=== PATIENT | male | born 1955 | race Caucasian/White ===

== ENCOUNTER 2023-04-03 10:39 | Emergency (ER) | payer MEDICARE ==
[~2023-04-03] VITALS: Ht 175.3 cm; Wt 113.4 kg
[~2023-04-03 10:39] MED LIST: ASPIRIN EC81 MG PO; CRESTOR10 MG PO; LISINOPRIL10 MG PO; METFORMIN HCL500 MG PO; MULTI-VITAMIN1 EACH PO
[2023-04-03 11:30] LABS: BASOPHILS % 0.4 % (0.0-1.0); EOSINOPHILS # (AUTO) 0.1 (0.0-0.4); EOSINOPHILS % 2.1 % (0.0-6.0); HEMATOCRIT 40.1 % (38.2-49.6); HEMOGLOBIN 13.1 g/dL (14.0-18.0); LYMPHOCYTES # (AUTO) 1.5 (1.0-3.2); LYMPHOCYTES % 31.1 % (18.0-39.1); MEAN CORPUSCULAR HEMOGLOBIN 29.9 pg (28-32); MEAN CORPUSCULAR HGB CONC 32.7 g/dL (31-35); MEAN CORPUSCULAR VOLUME 91.6 fL (81-99); MONOCYTES # (AUTO) 0.5 (0.2-0.8); MONOCYTES % 9.5 % (4.4-11.3); NEUTROPHILS # (AUTO) 2.7 (2.1-6.9); NEUTROPHILS % 56.5 % (38.7-80.0); PLATELET COUNT 101 x10e3/uL (140-360); RED BLOOD COUNT 4.38 x10e6/uL (4.3-5.7); RED CELL DISTRIBUTION WIDTH 13.3 % (11.7-14.4)
[2023-04-03 11:48] LABS: ALBUMIN/GLOBULIN RATIO 1.2 (0.8-2.0); CALCIUM 9.4 mg/dL (8.4-10.2); CREATININE, SERUM 2.06 mg/dL (0.72-1.25)
[2023-04-03 12:18] VITALS: BP 152/72; PULSE 75; RESP 18; O2SAT 100
== END 2023-04-03 12:23 | disposition home or self-care (01) ==
LOC: ER 10:43
DX: I12.9 Hypertensive chronic kidney disease with stage 1 through stage 4 chronic kidney disease, or unspecified chronic kidney disease (principal); E11.22 Type 2 diabetes mellitus with diabetic chronic kidney disease; E11.65 Type 2 diabetes mellitus with hyperglycemia; N18.9 Chronic kidney disease, unspecified; E78.5 Hyperlipidemia, unspecified; R94.31 Abnormal electrocardiogram [ECG] [EKG]
CPT/HCPCS: 36415; 80053; 85025; 93005; 99283; 99284

== ENCOUNTER 2023-04-05 11:41 | Observation (INO) | payer MEDICARE ==
[2023-04-02 12:59] LABS: BASOPHILS % 0.8 % (0.0-1.0); EOSINOPHILS # (AUTO) 0.1 (0.0-0.4); EOSINOPHILS % 2.9 % (0.0-6.0); HEMATOCRIT 40.6 % (38.2-49.6); HEMOGLOBIN 13.3 g/dL (14.0-18.0); LYMPHOCYTES # (AUTO) 1.4 (1.0-3.2); LYMPHOCYTES % 28.7 % (18.0-39.1); MEAN CORPUSCULAR HEMOGLOBIN 29.9 pg (28-32); MEAN CORPUSCULAR HGB CONC 32.8 g/dL (31-35); MEAN CORPUSCULAR VOLUME 91.2 fL (81-99); MONOCYTES # (AUTO) 0.5 (0.2-0.8); MONOCYTES % 10.1 % (4.4-11.3); NEUTROPHILS # (AUTO) 2.8 (2.1-6.9); NEUTROPHILS % 57.3 % (38.7-80.0); PLATELET COUNT 109 x10e3/uL (140-360); RED BLOOD COUNT 4.45 x10e6/uL (4.3-5.7); RED CELL DISTRIBUTION WIDTH 13.6 % (11.7-14.4)
[2023-04-02 13:12] LABS: ANION GAP 13.9 mmol/L (8-16); CALCIUM 9.7 mg/dL (8.4-10.2); CREATININE, SERUM 2.09 mg/dL (0.72-1.25); POTASSIUM 5.9 mmol/L (3.5-5.1)
[~2023-04-05] VITALS: Ht 177.8 cm; Wt 113.4 kg
[2023-04-05] MEDS ORDERED: KETOROLAC TROMETHAMINE 30 MG/ML VIAL ONE (11:43)
[2023-04-05] MEDS ORDERED: ONDANSETRON HCL INJ 2MG/ML 2ML 2 MG/ML VIAL ONE (11:43)
[2023-04-05] MEDS ORDERED: LIDOCAINE HCL 2% LOCAL INJ 5 ML SDV VIAL INJ ONE (11:43)
[2023-04-05] MEDS ORDERED: POVIDONE IODINE 0.05% 0.05 % ML PO ONE (11:43)
[2023-04-05] MEDS ORDERED: SEVOFLURANE INHAL SOLN 250 ML PEN BTL ONE (11:43)
[2023-04-05] MEDS ORDERED: DEXAMETHASONE SOD PHOS INJ 4 MG/ML SDV ONE (11:43)
[2023-04-05] MEDS ORDERED: ROCURONIUM BROMIDE 10 MG/ML 5ML VIAL IV ONE (11:43)
[2023-04-05] MEDS ORDERED: PROPOFOL IV EMULSION 10 MG/ML 20 ML VIAL ONE (11:43)
[2023-04-05] MEDS ORDERED: METOCLOPRAMIDE HCL 10 MG/2ML VIAL ONE (11:43)
[2023-04-05] MEDS ORDERED: FENTANYL CITRATE/PF 100MCG/2 ML INJ ONE (12:08)
[2023-04-05] MEDS ORDERED: GENTAMICIN 80MG/NS 100 ML 200 ML IV ONE (12:33)
[2023-04-05] MEDS ORDERED: CLINDAMYCIN 600MG / 50ML 50 ML IV ONE (12:33)
[2023-04-05] MEDS ORDERED: MEROPENEM 1 GM VIAL ONE (12:34)
[2023-04-05] MEDS ORDERED: LACTATED RINGER'S 1,000 ML ONE (12:34)
[2023-04-05] MEDS ORDERED: GENTAMICIN SULFATE 40 MG/ML 2 ML VIAL ONE (14:03)
[2023-04-05] MEDS ORDERED: SODIUM CHLORIDE 0.9% 500ML 500 ML ONE (14:03)
[2023-04-05] MEDS ORDERED: Vancomycin IV 1,000 MG ONE (14:04)
[2023-04-05] MEDS ORDERED: BACITRACIN ZINC 15 GM OINT ONE (14:04)
[2023-04-05] MEDS ORDERED: SUGAMMADEX SODIUM 200 MG/2 ML VIAL IV ONE (14:39)
[2023-04-05] MEDS ORDERED: ACETAMINOPHEN 1000 MG/100 ML IV PRN (14:45)
[2023-04-05] MEDS ORDERED: ONDANSETRON HCL INJ 2MG/ML 2ML 2 MG/ML VIAL IV PRN (14:45)
[2023-04-05] MEDS ORDERED: ACETAMINOPHEN/CODEINE 300MG - 30MG TAB PO PRN (14:45)
[2023-04-05] MEDS ORDERED: DIPHENHYDRAMINE HCL 25 MG CAP PO PRN (14:45)
[2023-04-05] MEDS ORDERED: PHENAZOPYRIDINE HCL 100 MG TAB PO PRN (14:45)
[2023-04-05] MEDS: DOCUSATE SODIUM 100 MG CAP PO SCH (17:00)
[2023-04-05 17:44] VITALS: PULSE 75; RESP 18; O2SAT 95
[2023-04-05 17:51] VITALS: BP 160/78; PULSE 72; RESP 16; TEMP 98; O2SAT 100
[2023-04-05] MEDS: SODIUM CHLORIDE 0.9% 1000ML 1,000 ML IV SCH (18:38)
[2023-04-05 20:00] VITALS: BP 155/73; PULSE 76; RESP 18; TEMP 98.5; O2SAT 100
[2023-04-05] MEDS: MEROPENEM 1 GM in SODIUM CHLORIDE 0.9% 100 ML IV SCH (21:05)
[2023-04-05] MEDS ORDERED: DEXTROSE 50% SYRINGE 50 ML IV PRN (22:30)
[2023-04-05] MEDS ORDERED: ACETAMINOPHEN 325 MG TAB PO PRN (22:30)
[2023-04-06 00:45] VITALS: BP 156/70; PULSE 71; RESP 18; TEMP 97.5; O2SAT 99
[2023-04-06 04:00] VITALS: BP 148/73; PULSE 77; RESP 18; TEMP 97.7; O2SAT 100
[2023-04-06] MEDS: SODIUM CHLORIDE 0.9% 1000ML 1,000 ML IV SCH (05:27)
[2023-04-06 06:02] LABS: BASOPHILS % 0.1 % (0.0-1.0); HEMATOCRIT 35.9 % (38.2-49.6); LYMPHOCYTES # (AUTO) 0.6 (1.0-3.2); LYMPHOCYTES % 6.3 % (18.0-39.1); MEAN CORPUSCULAR HEMOGLOBIN 30.4 pg (28-32); MEAN CORPUSCULAR HGB CONC 33.4 g/dL (31-35); MEAN CORPUSCULAR VOLUME 90.9 fL (81-99); MONOCYTES # (AUTO) 0.8 (0.2-0.8); MONOCYTES % 8.1 % (4.4-11.3); NEUTROPHILS # (AUTO) 8.5 (2.1-6.9); NEUTROPHILS % 85.1 % (38.7-80.0); PLATELET COUNT 108 x10e3/uL (140-360); RED BLOOD COUNT 3.95 x10e6/uL (4.3-5.7); RED CELL DISTRIBUTION WIDTH 13.3 % (11.7-14.4)
[2023-04-06 06:27] LABS: CALCIUM 8.9 mg/dL (8.4-10.2); CREATININE, SERUM 2.28 mg/dL (0.72-1.25)
[2023-04-06 06:51] LABS: CHOL/HDL RATIO 3.8 (3.9-4.7)
[2023-04-06 07:01] VITALS: PULSE 76; RESP 18; O2SAT 98
[2023-04-06] MEDS ORDERED: INSULIN REGULAR, HUMAN 100 UNIT/1 ML SQ SCH (07:30)
[2023-04-06] MEDS ORDERED: MELATONIN 3 MG TAB PO PRN (07:45)
[2023-04-06] MEDS ORDERED: DOCUSATE SODIUM 100 MG CAP PO PRN (07:45)
[2023-04-06] MEDS ORDERED: SIMETHICONE 80 MG CHEW PO PRN (07:45)
[2023-04-06 09:00] VITALS: BP 148/73; PULSE 76; RESP 18; TEMP 97.7; O2SAT 98
[2023-04-06] MEDS: DOCUSATE SODIUM 100 MG CAP PO SCH (09:00)
[2023-04-06 09:10] VITALS: BP 150/76; PULSE 74; RESP 20; TEMP 97.7; O2SAT 100
[2023-04-06] MEDS: MEROPENEM 1 GM in SODIUM CHLORIDE 0.9% 100 ML IV SCH (09:31)
[2023-04-06] MEDS ORDERED: SIMVASTATIN 40 MG TAB PO SCH (21:00)
== END 2023-04-06 11:39 | disposition home or self-care (01) ==
LOC: OR 11:41 → PACU V 14:31 → MED/SURG2 17:04
PROVIDERS: ADMIT Internal Medicine; ATTEND Internal Medicine
DX: E11.69 Type 2 diabetes mellitus with other specified complication (principal); N52.1 Erectile dysfunction due to diseases classified elsewhere; N40.1 Benign prostatic hyperplasia with lower urinary tract symptoms; N13.8 Other obstructive and reflux uropathy; N32.89 Other specified disorders of bladder; E11.22 Type 2 diabetes mellitus with diabetic chronic kidney disease; I12.9 Hypertensive chronic kidney disease with stage 1 through stage 4 chronic kidney disease, or unspecified chronic kidney disease; N18.9 Chronic kidney disease, unspecified; G47.30 Sleep apnea, unspecified; E66.9 Obesity, unspecified; E78.5 Hyperlipidemia, unspecified; Z88.0 Allergy status to penicillin; Z01.812 Encounter for preprocedural laboratory examination; Z01.818 Encounter for other preprocedural examination; Z79.82 Long term (current) use of aspirin; Z79.84 Long term (current) use of oral hypoglycemic drugs; Z79.899 Other long term (current) drug therapy; Z68.35 Body mass index [BMI] 35.0-35.9, adult
CPT/HCPCS: 36415 ×3; 52000; 54400; 71046; 80048 ×2; 80061; 82948 ×2; 83036; 85025 ×2; 94799 ×2; C2622; G0378 ×2; J0131; J1100; J1580 ×2; J1885; J2001; J2185 ×2; J2405; J2704; J2765; J3010; J3370; J7030 ×2; J7040; J7050 ×2; J7121